=== PATIENT | male | born 1940 | race Caucasian/White ===

== ENCOUNTER 2022-02-04 09:02 | Emergency (ER) | payer MEDICARE, BC, SELFPAY ==
[2022-02-04 09:11] VITALS: BP 174/100; PULSE 81; RESP 16; TEMP 36.3; O2SAT 96; BMI 19.2
--- NOTE | 2022-02-04 09:27 | CRLHL7_ITS ---
For Patients: As a result of the Century Cures Act, medical imaging exams and procedure reports are released immediately into your electronic medical record. You may view this report before your referring provider. If you have questions, please contact your health care provider. INDICATION: Injury TECHNIQUE: 3-view lumbar spine. COMPARISON: CT abdomen and pelvis 04/29/2015 FINDINGS: Mild compression of L4 has developed since the prior study. Similar appearance of the L3 superior endplate. L5 intact. Mild-moderate compression L2, new from prior. Chronic appearance of the L1 superior endplate. Multilevel discogenic spurring. IMPRESSION: Mild-moderate compression of L2 may be acute or subacute. Mild chronic wedging of L4. Dictated by Mj Magana MD @ 02/04/2022 10:57:45 AM (Electronically Signed)
--- NOTE | 2022-02-04 09:30 | ED_ITS ---
HPI - General Adult General Time Seen by Provider: 09:30 Date Seen: 02/04/22 Chief complaint: Back Injury/Pain Stated complaint: no bowel movement/back pain Time Seen by Provider: 02/04/22 09:03 Source: patient Mode of arrival: ambulatory Limitations: no limitations History of Present Illness HPI narrative: Patient is a 81-year-old white male who was helping his neighbor 3 moving some hay [place] couple weeks ago, strained his back. He reports pain across his left and right SI area. No radicular symptoms. No bowel or bladder changes other than he has been more constipated since this happened. Started taking Senokot yesterday. Did have a small bow bowel movement last night. No blood in his stool, no history of back trouble. Patient has been very healthy in the past, not on any home medications. No fevers chills weight loss, bowel or bladder problems other than constipation as mention. Related Data Previous Rx's Medication Instructions Recorded methylprednisolone 4 mg tablets in See Rx Instructions PO .COMPLEX 02/04/22 a dose pack (Medrol (Ed)) #21 ea Allergies Allergy/AdvReac Type Severity Reaction Status Date / Time minocycline Allergy Severe Anaphylaxis Verified 02/04/22 09:14 Review of Systems Status of ROS: Reports: 6 or more systems reviewed and unremarkable except as noted in History and below PFSH PFS Social History Smoking Status: Never smoker Do you use any of these nicotine containing products: None Second hand tobacco smoke exposure: No How often do you have a drink containing alcohol: never How often do you have six or more drinks on one occasion: Never AUDIT-C Alcohol total score: 0 Non-prescribed substance use: denies use service: No Exam Narrative: Exam Narrative: Objective: Patient is a very pleasant man Vital signs unremarkable other than slightly elevated blood pressure HEENT unremarkable Back exam shows no point tenderness no redness or abnormality noted Very limited range of motion lumbar spine he has difficulty sitting up because the pain when he moves in his low back. Is more on the right side at this time of midline along the belt line. Normal strength sensation lower extremities, negative straight leg raise bilaterally. No lower extremity swelling Const: Vital Signs, click to edit/add: Vital Signs - 24 hr 02/04/22 09:11 Temperature 97.3 F L Pulse Rate [Pulse Oximeter] 81 Respiratory Rate 16 Blood Pressure [Ri ght Upper Arm] 174/100 H Pulse Oximetry 96 Oxygen Delivery Me thod Room Air Course Vital Signs Vital signs: Initial Vital Signs Temperature 97.3 F L 02/04/22 09:11 Temperature Source Temporal Artery Scan 02/04/22 09:11 Pulse Rate 81 02/04/22 09:11 Respiratory Rate 16 02/04/22 09:11 Blood Pressure 174/100 H 02/04/22 09:11 Blood Pressure Mean 124 02/04/22 09:11 Blood Pressure Position Supine 02/04/22 09:11 Pulse Oximetry 96 02/04/22 09:11 Oxygen Delivery Method 02/04/22 09:11 Vital Signs Temperature 97.3 F L 02/04/22 09:11 Pulse Rate 81 02/04/22 09:11 Respiratory Rate 16 02/04/22 09:11 Blood Pressure 174/100 H 02/04/22 09:11 Pulse Oximetry 96 02/04/22 09:11 Oxygen Delivery Method 02/04/22 09:11 Temperature 97.3 F L 02/04/22 09:11 Pulse Rate 81 02/04/22 09:11 Respiratory Rate 16 02/04/22 09:11 Blood Pressure 174/100 H 02/04/22 09:11 Pulse Oximetry 96 02/04/22 09:11 Oxygen Delivery Method 02/04/22 09:11 Medical Decision Making MDM Narrative Medical decision making narrative: Given the patient's had this discomfort for couple of weeks he tried some medicare contact specialist, did a topical anesthetic patch to the area on the right. Neither of these been very helpful. I think we will get an x-ray of his lumbar spine make sure he does not have a compression fracture. If this is negative then I think symptomatic treatment with the leave perhaps 2 twice a day for the next 3-5 days, Medrol Dosepak would be reasonable, ice to the low back, restrict activity, follow up with primary care in the next couple of days as the patient may benefit from some physical therapy. He has no radicular signs at present. Addendum: No obvious for abnormalities on his lumbar spine x-ray by my read other than chronic changes Imaging Data Lumbar spine x-ray: My impression: Patient has some degenerative changes in his back, normal alignment no obvious marked compression fracture. Discharge Plan Discharge Clinical Impression: Strain of lumbar region Patient Disposition: Home w/ Parent or Adult Condition: Stable Additional Instructions: Gentle activity, ice to the back 20 minutes to 3 times a day for the next several days, Aleve 2 twice a day for the next 3-5 days, Medrol Dosepak as prescribed, recheck with primary care in 2 days, return to ED sooner problems or concerns. May need additional imaging if not improving or physical therapy. Continue Senokot but use it twice a day, increase fiber and fluid in the diet. Activity Level: Light activity Discharge Diet: Regular Prescriptions: New methylprednisolone [Medrol (Ed)] 4 mg tablets,dose pack See Rx Instructions .ROUTE .COMPLEX Qty: 21 0RF Rx Instructions: orally per package directions Follow Up/Referrals: Tod Snow MD [Staff Physician] - Stand Alone Forms: [facility] Info Instructions
== END 2022-02-04 10:31 | disposition home or self-care (01) ==
LOC: ED 09:34
PROVIDERS: Emergency Provider Family Medicine; PCP Family Medicine
DX: S39.012A Strain of muscle, fascia and tendon of lower back, initial encounter (principal)
CPT/HCPCS: 72100; 99283; 99284

== ENCOUNTER 2022-03-29 09:18 | Outpatient (CLI) | payer MEDICARE, BC, SELFPAY | END 2022-03-29 09:19 | disposition home or self-care (01) | LOC: AMB 04-21 17:33 | PROVIDERS: PCP Family Medicine; Visit Provider Family Medicine | DX: R56.9 Unspecified convulsions (principal) | CPT/HCPCS: A0425; A0427 ==

== ENCOUNTER 2022-07-20 06:26 | Day surgery (SDC) | payer MEDICARE, BC, SELFPAY ==
[2022-07-20] VITALS (7 sets, daily range): BP systolic 136–150; BP diastolic 75–89; PULSE 70–85; RESP 14–16; TEMP 36.7–37.1; O2SAT 93–97; BMI 18.5
[2022-07-20] MEDS: ETHYL CHLORIDE 1 APPLICATION 1 APPLIC TOPICAL (06:50)
[2022-07-20] MEDS: BUPIVACAINE 0.5% 30 ML INJECTION (06:50)
[2022-07-20] MEDS: NEOMYCIN/BACITRACIN/POLYMYXIN B 1 APPLIC TOPICAL (07:47)
--- NOTE | 2022-07-20 07:53 | P.ORPRC_ITS ---
Procedure Note Date of procedure: 07/20/22 Procedure: PREOPERATIVE DIAGNOSIS: 1. Right carpal tunnel syndrome POSTOPERATIVE DIAGNOSIS: 1. Right carpal tunnel syndrome PROCEDURE: 1. Right open carpal tunnel release SURGEON: Corby Barr MD. PRODUCTION LEAD: Nemesio Amaya PA-C ANESTHESIA: Local anesthetic (50:50 mixture of 1% lidocaine with epi and 0.5% marcaine plain) - 8ml total IMPLANTS: None EBL: 2 mL TOURNIQUET: None COMPLICATIONS: None evident INDICATIONS: The patient is a pleasant 81-year-old male who has experienced right hand numbess/tingling affecting the radial 3.5 digits for multiple months. It has progressively gotten worse. Nonoperative management has been tried and failed, and therefore surgery was recommended. DESCRIPTION OF PROCEDURE: Following a thorough discussion of risks, benefits, and alternatives consent was obtained and the operative extremity was marked. The patient was brought to the operating room and placed supine on the operating table. Local anesthesia induction was undertaken in preop holding. No antibiotics were administered as this was planned to be a local case only. Proper time-out was performed identifying proper patient, site, and procedure. The operative extremity was prepped and draped in the appropriate sterile fashion using ChloraPrep. An incision was made in line with the radial border of the ring finger beginning 1 cm distal to the distal wrist crease and progressing for another 2.5cm distal. Caution was taken to stay proximal to Davis's cardinal line. Sharp incision through the skin, subcutaneous tissue, and palmar fascia was performed. The thenar musculature was bluntly elevated off the transverse carpal ligament. The ligament was directly visualized, and divided sharply with a 15 blade. This was released from its most proximal to the most distal extent. Metzenbaum scissor was also utilized to release the fascia extension proximally. We confirmed complete release of the transverse carpal ligament. Closure was performed with 4-O nylon in interrupted fashion. Soft dressings were applied, and the patient was transferred to the recovery room in stable condition. PLAN: 1. Encourage elevation of the operative extremity. 2. Range of motion of the fingers and hand/wrist as tolerated. 3. Ibuprofen/acetaminophen and/or Percocet as needed for pain control. 4. Follow up with PA visit or nurse visit in 12-16 days for wound check and suture removal.
== END 2022-07-20 08:19 | disposition home or self-care (01) ==
PROVIDERS: PCP Family Medicine; Visit Provider Orthopaedic Surgery Sports Medicine
PROC: (CPT 64721; principal; 2022-07-20 07:30)
DX: G56.01 Carpal tunnel syndrome, right upper limb (principal)
CPT/HCPCS: 64721; J3490

== ENCOUNTER 2023-04-09 22:39 | Outpatient (CLI) | payer MEDICARE, BC, SELFPAY | END 2023-04-09 22:40 | disposition home or self-care (01) | LOC: AMB 04-14 10:05 | PROVIDERS: PCP Family Medicine; Visit Provider Family Medicine | DX: S79.912A Unspecified injury of left hip, initial encounter (principal); W18.30XA Fall on same level, unspecified, initial encounter; Y92.009 Unspecified place in unspecified non-institutional (private) residence as the place of occurrence of the external cause | CPT/HCPCS: A0425; A0427 ==

== ENCOUNTER 2025-04-08 07:57 | Outpatient (CLI) | payer MEDICARE, BC, SELFPAY | END 2025-04-08 07:58 | disposition home or self-care (01) | LOC: AMB 04-09 03:34 | PROVIDERS: PCP Family Medicine; Visit Provider Family Medicine | DX: R41.82 Altered mental status, unspecified (principal); R53.1 Weakness | CPT/HCPCS: A0425; A0427 ==